=== PATIENT | male | born 1950 | race Caucasian/White ===

== ENCOUNTER → 2017-05-22 14:32 | Outpatient (CLI) | payer MEDICARE, OTHER ==
[~2017-05-22 14:32] MED LIST: ASPIRIN81 MG PO; BYSTOLIC5 MG PO; FISH OIL 1,0001 CA1 PO; XARELTO20 MG PO; ZESTRIL10 MG PO
[2017-06-06 12:40] VITALS: BMI 25.7
== END | disposition home or self-care (01) ==
LOC: D.MRI 14:32
DX: M54.2 Cervicalgia (principal)

== ENCOUNTER 2017-06-06 05:52 | Inpatient (IN) | payer MEDICARE ==
[2017-06-06] VITALS (16 sets, daily range): BP systolic 101–149; BP diastolic 62–102; Ht 172.7 cm; Wt 76.8 kg
[~2017-06-06] VITALS: Ht 172.7 cm; Wt 76.8 kg
--- NOTE | ~2017-06-06 | OP ---
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 PROCEDURE: Anterior cervical discectomy and fusion with separate VIP anterior cervical plate and screws, separate PEEK interbody cages, and ViaCell bone stem cell allograft. DESCRIPTION AND TECHNIQUE: After induction of general endotracheal anesthesia, the patient was positioned supine on the operating table. Neck was prepped and draped in usual sterile fashion. Fluoroscopic x-ray and freer localized the C5-C6 interspace. A transverse skin incision was carried out from the midline to the sternocleidomastoid muscle. The platysma was divided with Bovie cautery. Using blunt and sharp dissection with Metzenbaum scissors, I proceeded in avascular plane medial to the carotid sheath. The C5-C6 and C6-C7 interspaces were identified with fluoroscopic x-ray and [place] distracting pins. Self-retaining retractor was placed deep to longus colli muscles. The C5-C6 and C6-C7 disc spaces were incised under distraction. Disc material was removed with pituitary rongeurs and curettes. The posterior longitudinal ligament was removed at each level with Cloward rongeurs. The dura was decompressed well. An 8 mm PEEK interbody cage was placed into the space at C5-C6, a 9 mm cage at C6-C7 and 1 cc of ViaCell bone stem cell was packed into each cage prior to placement. Next, separate VIP anterior cervical plate was used to span the C5, C6 and C7 vertebral bodies. The 18 mm screws were placed through the holes of the plate. Locking cams were tightened down over the screw heads. Meticulous hemostasis was maintained throughout the wound. The wound was irrigated with copious amounts of Ancef irrigant solution. The platysma and subdermal layer were closed with interrupted 3-0 Vicryl suture. The skin was reapproximated with Steri-Strips and benzoin. A sterile dressing was applied to the wound. The patient was awakened in good condition and taken to recovery. All counts were reported as correct. Estimated blood loss was minimal. TRANSINT:[id number] Voice Confirmation ID: [id number] DOCUMENT ID: [id number] CHENCHO MONZON MD at 1318 CC: [id number] DICTATION DATE: 06/09/17 1211 OFFSET PRESS ASSISTANT: 06/09/17 1421 DIS IN 06/07/17 [place] [id number]
--- NOTE | ~2017-06-06 | DS ---
PATIENT:MYKEL SOUZA :52 MEDICAL RECORD: [id number] DISCHARGE SUMMARY ADMISSION DATE: 06/06/17 DISCHARGE DATE: 06/07/17 ADMISSION DIAGNOSES: Osteophyte formation and disc herniation at C5-C6 and C6-C7 and surgery anterior cervical discectomy and fusion at C5-C6 and C6-C7. HOSPITAL COURSE: The patient was admitted for surgery. He tolerated the procedure well, was observed in ICU overnight and discharged home the following morning. Diet was regular. MEDICATIONS: [place] 10 one to two every 3 hours p.r.n. pain. Return to clinic to see Dr. Felix in 2 weeks with lateral C-spine. TRANSINT:[id number] Voice Confirmation ID: [id number] DOCUMENT ID: [id number] CHENCHO FELIX MD at 1544 CC: [id number] DICTATION DATE: 06/18/17 1204 PATROL POLICE SERGEANT: 06/19/17 0227 DIS IN 06/07/17 [place] [id number] [place] [address]
[~2017-06-06 05:52] MED LIST changes: -ASPIRIN81 MG PO
[2017-06-06] MEDS ORDERED: ASPIRIN81 MG PO (06:35)
[2017-06-06 07:04] LABS: BASOPHILS 0.1 % (0-2); EOSINOPHILS 1.2 % (0-7); HEMATOCRIT 47.6 % (42.0-54.0); HEMOGLOBIN 16.7 g/dL (13.5-17.5); IMMATURE GRANULOCYTES 0.1 % (0-5); LYMPHOCYTES 24.8 % (15-50); MCH 31.9 pg (26.0-34.0); MCHC 35.1 g/dL (31.0-37.0); MEAN PLATELET VOLUME 10.4 fL (7.4-10.4); MONOCYTES 6.5 % (2-11); NEUTROPHILS 67.3 % (40-80); PLATELET COUNT 208 10x3/uL (130-400); RBC 5.23 10x6/uL (4.20-6.10); RDW 12.9 % (11.5-14.5); WBC 8.5 10x3/uL (4.8-10.8)
[2017-06-06 07:20] LABS: CALC OSMOLALITY 290 mosm/kg (275-300); CALCIUM 9.6 mg/dL (8.5-10.1); CARBON DIOXIDE 28.9 mmol/L (21.0-32.0); CHLORIDE - SERUM 106 mmol/L (98-107); CREATININE - SERUM 0.4 mg/dL (0.6-1.3); GLUCOSE 109 mg/dL (74-106); SODIUM 145 mmol/L (136-145); UREA NITROGEN 15 mg/dL (7-18); eGFR NON AFRICAN AMERICAN > 90 mL/min (90-120)
[2017-06-07] VITALS (9 sets, daily range): BP systolic 97–128; BP diastolic 64–92
== END 2017-06-07 10:15 | disposition home or self-care (01) | DRG 473 ==
LOC: D.SDCHOLD 05:52 → D.ICU 05:52 → D.SDCHOLD 07:30 → D.ICU 11:55
PROVIDERS: Anesthesiology; Neurological Surgery
PROC: 0RB30ZZ Excision of Cervical Vertebral Disc, Open Approach (ICD-10-PCS; 2017-06-06)
PROC: 0RG20A0 Fusion of 2 or more Cervical Vertebral Joints with Interbody Fusion Device, Anterior Approach, Anterior Column, Open Approach (ICD-10-PCS; principal; 2017-06-06 07:30)
DX: M50.222 Other cervical disc displacement at C5-C6 level (principal); M50.123 Cervical disc disorder at C6-C7 level with radiculopathy

== ENCOUNTER → 2017-08-04 10:22 | Outpatient (CLI) | payer MEDICARE ==
[2017-06-06 12:40] VITALS: BMI 25.7
[~2017-08-04 10:22] MED LIST changes: +ASPIRIN81 MG PO
== END | disposition home or self-care (01) ==
LOC: D.MRI 10:22
DX: M54.16 Radiculopathy, lumbar region (principal)